=== PATIENT | female | born 1960 | race Hispanic/Latino ===

== ENCOUNTER 2018-02-17 17:51 | Emergency (ER) | payer OTHER ==
[~2018-02-17] VITALS: Ht 149.9 cm; Wt 65.4 kg
[2018-02-17 19:54] LABS: BASOPHIL (%) 0.6 % (0-1); BASOPHIL COUNT 0.1 K/uL (0-0.1); EOSINOPHIL (%) 1.6 % (0-5); EOSINOPHIL COUNT 0.1 K/uL (0-0.3); HEMOGLOBIN 13.8 G/DL (11.9-15.5); IMMATURE GRANULOCYTE (%) 0.4 % (0.0-0.7); MCH 30.5 PG (29.0-34.0); MCHC 34.5 G/DL (30.0-36.0); MCV 88.3 FL (83-99); MONOCYTE COUNT 0.6 K/uL (0-0.8); NEUTROPHIL (%) 67.4 % (45-76); NEUTROPHIL COUNT 5.8 K/uL (1.8-6.4); PLATELET COUNT 292 K/uL (156-360); RBC DIS.WIDTH-CV 12.3 % (11.8-14.6); RBC DIS.WIDTH-SD 39.7 % (39-53); RED BLOOD COUNT 4.53 M/uL (3.80-5.20); WHITE BLOOD COUNT 8.6 K/uL (4.1-10.2)
[2018-02-17 20:01] LABS: PTT 25.2 SEC (25-37)
[2018-02-17 20:05] LABS: CHLORIDE 106 mEq/L (99-109); POTASSIUM 3.2 mEq/L (3.7-5.4); SODIUM 142 mEq/L (136-147)
[2018-02-17 20:07] LABS: GLUCOSE 117 mg/dL (70-99)
[2018-02-17 20:10] LABS: SERUM ETHYL ALCOHOL < 10 mg/dL
[2018-02-17 20:11] LABS: CREATININE 0.8 mg/dL (0.6-1.3); GFR ESTIMATE (CALCULATED) > 59 mL/min/
[2018-02-17 20:12] LABS: UREA NITROGEN (BUN) 18 mg/dL (9-23)
[2018-02-17] MEDS ORDERED: FLEXERIL10 MG PO (23:35)
[2018-02-17] MEDS ORDERED: IBU600 MG PO (23:35)
[2018-02-17 23:57] VITALS: BP 176/82
== END 2018-02-17 23:57 | disposition home or self-care (01) ==
LOC: EME 17:51
PROVIDERS: Emergency Medicine
PROC: 3E0234Z Introduction of Serum, Toxoid and Vaccine into Muscle, Percutaneous Approach (ICD-10-PCS; principal; 2018-02-17)
DX: S02.2XXA Fracture of nasal bones, initial encounter for closed fracture (principal); S06.0X0A Concussion without loss of consciousness, initial encounter; S00.83XA Contusion of other part of head, initial encounter; S80.01XA Contusion of right knee, initial encounter; W01.198A Fall on same level from slipping, tripping and stumbling with subsequent striking against other object, initial encounter; Y93.01 Activity, walking, marching and hiking; Z23 Encounter for immunization
CPT/HCPCS: 70450; 70486; 72125; 73564; 80048; 85025; 85610; 85730; 99281; 99285; G0480; J3010